=== PATIENT | male | born 1955 | race Two or more races ===

== ENCOUNTER 2020-03-28 22:55 | Inpatient (IN) | payer MEDICAID, OTHER ==
[~2020-03-28] VITALS: Ht 177.8 cm; Wt 35.0 kg
[2020-03-28 23:24] LABS: Basophils # (auto) 0.1 10 ^3/uL (0-0.2); Basophils % (auto) 0.8 % (0.0-2.0); Eosinophils # (auto) 0.3 10 ^3/uL (0-0.8); Eosinophils % (auto) 3.8 % (0.0-7.0); Hemoglobin 14.2 g/dL (13.5-17.5); Lymphocytes # (auto) 2.6 10 ^3/uL (0.4-5.4); Lymphocytes % (auto) 32.9 % (10.0-50.0); Mean Corpuscular Hemoglobin 29.4 pg (28.0-32.0); Mean Corpuscular Hgb Conc. 34.7 g/dL (32.0-36.0); Mean Corpuscular Volume 84.9 fL (80.0-100.0); Monocytes # (auto) 0.9 10 ^3/uL (0-1.3); Neutrophils % (auto) 51.5 % (37.0-80.0); Platelet Count (auto) 240 10^3/uL (140-450); Red Blood Cells 4.84 10^6/uL (4.5-5.90); Red Cell Distribution Width 13.9 % (11.8-14.3); White Blood Cell 7.8 10^3/uL (4.4-10.8)
[2020-03-28] MEDS ORDERED: ASPirin 81 mg TAB PO ONE (23:45)
[2020-03-28] MEDS ORDERED: MORPHINE SULFATE 4 MG/ML SYR/VIAL IV ONE (23:45)
[2020-03-28] MEDS ORDERED: ONDANSETRON HCL 4 MG/2 ML VIAL IV ONE (23:45)
[2020-03-28 23:46] LABS: Albumin 4.1 g/dL (3.4-5.0); Anion Gap 5 (5-15); Blood Urea Nitrogen 14 mg/dL (7-18); Calcium 9.4 mg/dL (8.5-10.1); Carbon Dioxide 30 mmol/L (21-32); Chloride 103 mmol/L (98-107); Glucose 130 mg/dL (74-106); INR 0.99 (0.9-1.15); Partial Thromboplastin Time 24.7 sec (23.0-31.2); Potassium 3.9 mmol/L (3.5-5.1); Sodium 138 mmol/L (136-145)
[2020-03-28 23:47] LABS: Alanine Aminotransferase 123 U/L (16-61); Aspartate Aminotransferase 52 U/L (15-37); BUN/Creatinine Ratio 13.3; GFR African American 91 mL/min; GFR Non-African American 76 mL/min
[2020-03-28 23:50] LABS: Alkaline Phosphatase 51 U/L (45-117); Bilirubin, Total 0.9 mg/dL (0.2-1.0); Total Protein 7.9 g/dL (6.4-8.2)
[2020-03-29] MEDS ORDERED: LORazepam 2MG/ML-1ML VIAL IV ONE (00:15)
[2020-03-29] MEDS ORDERED: MORPHINE SULFATE 4 MG/ML SYR/VIAL IV ONE (01:45)
[2020-03-29] MEDS ORDERED: ONDANSETRON HCL 4 MG/2 ML VIAL IV ONE (01:45)
[2020-03-29] MEDS ORDERED: LORazepam 0.5 MG TAB PO PRN (03:15)
[2020-03-29] MEDS ORDERED: DEXTROSE (50%) 50ML SYRG IV PRN (03:15)
[2020-03-29] MEDS ORDERED: ZOLPIDEM TARTRATE 5 MG TAB PO PRN (03:15)
[2020-03-29] MEDS ORDERED: ACETAMINOPHEN 325 MG TAB PO PRN (03:15)
[2020-03-29] MEDS ORDERED: ONDANSETRON HCL 4 MG/2 ML VIAL IV PRN (03:15)
[2020-03-29] MEDS ORDERED: NITROGLYCERIN 0.4 MG SL TAB SL PRN (03:15)
[2020-03-29] MEDS: InsuLIN REG 1unit/0.01ml Soln (100units/ml) SC SCH ×3 (04:00→14:38)
[2020-03-29] MEDS: ACCU-CHEK COMFORT CURVE STRIP VI SCH ×3 (04:00→12:30)
[2020-03-29] MEDS: MORPHINE SULF INJ 2 MG/ML SYRINGE 1ML IV PRN ×2 (07:50→13:10)
--- NOTE | 2020-03-29 09:30 | NUR ---
Telemetry admit from ER TAE GARCIA admitted to Telemetry unit after SBAR received. Patient oriented to JESSICA PETTIT RN primary RN, unit, room, bed, and unit policies regarding patient care and visiting hours. Patient now on continuous telemetry monitoring. Patient weighed by bedscale and encouraged to call if they need something. All questions and concerns addressed, patient verbalized understanding.
[2020-03-29 09:46] VITALS: BP 147/101
[2020-03-29] MEDS ORDERED: LISINOPRIL 5 MG TAB PO SCH (10:00)
[2020-03-29] MEDS ORDERED: ASPirin 81 mg TAB PO SCH (10:00)
[2020-03-29] MEDS ORDERED: CLOPIDOGREL BISULFATE 75 MG TAB PO SCH (10:00)
[2020-03-29] MEDS ORDERED: DOCUSATE SOD 100 MG CAP PO SCH (10:00)
[2020-03-29] MEDS ORDERED: CARVEDILOL 3.125 MG TAB PO SCH (10:00)
[2020-03-29] MEDS ORDERED: cloNIDine HCL 0.1 MG TAB PO PRN (11:00)
[2020-03-29] MEDS ORDERED: LOSARTAN POTASSIUM 50 MG TAB PO ONE (11:15)
[2020-03-29 13:00] VITALS: BP 167/97
--- NOTE | 2020-03-29 13:10 | NUR ---
Chest Pain Patient is complaining of chest pain at this time. EKG done. Placed in chart. Blood pressure: 116/74 with a pulse of 83, oxygen is 94% on room air. Will administer morphine and nitro per chest pain protocol.
--- NOTE | 2020-03-29 13:15 | NUR ---
Nitro administered at this time Blood Pressure 126/78 Pulse 78 Placed patient on 2L of supplemental oxygen for comfort.
--- NOTE | 2020-03-29 13:20 | NUR ---
Chest Pain relieved Chest pain has been relieved. Blood pressure is 94/69, pulse 79.
--- NOTE | 2020-03-29 14:00 | NUR ---
AMA Note TAE GARCIA states they want to leave the hospital Against Medical Advice (AMA). Patient encouraged to stay for further treatment/stabilization. MD Nilesh notified of patient's wishes. Patient advised of the risks and benefits of leaving AMA. Patient verbalized understanding. Patient encouraged to return to the ER if symptoms do not improve or worsen.
[2020-03-29] MEDS ORDERED: CARVEDILOL 12.5 MG TAB PO SCH (22:00)
[2020-03-29] MEDS ORDERED: ATORVASTATIN 20 MG TAB PO SCH (22:00)
[2020-03-30] MEDS ORDERED: LOSARTAN POTASSIUM 50 MG TAB PO SCH (10:00)
== END 2020-03-29 14:00 | disposition left against medical advice (07) | DRG 198 ==
LOC: EDBD 22:55 → ER 22:58 → TELE 22:59 → TELE-WESTW 03-29 09:30
PROVIDERS: ADMIT Hospitalist; ATTEND Internal Medicine
DX: I25.10 Atherosclerotic heart disease of native coronary artery without angina pectoris (principal); E11.65 Type 2 diabetes mellitus with hyperglycemia; I24.9 Acute ischemic heart disease, unspecified; R07.2 Precordial pain; E11.51 Type 2 diabetes mellitus with diabetic peripheral angiopathy without gangrene; E78.5 Hyperlipidemia, unspecified; I10 Essential (primary) hypertension; Z79.84 Long term (current) use of oral hypoglycemic drugs; Z95.5 Presence of coronary angioplasty implant and graft; Z79.4 Long term (current) use of insulin; Z95.820 Peripheral vascular angioplasty status with implants and grafts; Z95.818 Presence of other cardiac implants and grafts; I25.2 Old myocardial infarction; Z79.899 Other long term (current) drug therapy; Z53.29 Procedure and treatment not carried out because of patient's decision for other reasons
CPT/HCPCS: 36415; 71045; 80053; 82962; 83036; 83880; 84484; 85025; 85610; 85730; 93005; 96374; 96375; 96376; G0378; J2405